=== PATIENT | male | born 1945 | race African-American/Black ===

== ENCOUNTER 2016-11-08 13:01 | Day surgery (SDC) | payer OTHER, MEDICAID ==
[2016-11-08] MEDS ORDERED: TETRACAINE 0.5% OPHTH 1 DOSE AFFEYE ONE ×2 (13:25→13:58)
[2016-11-08] MEDS ORDERED: ALPHAGAN-P OPHTH 1 DOSE AFFEYE ONE (13:26)
[2016-11-08 13:28] VITALS: BP 157/96
== END 2016-11-08 14:18 | disposition home or self-care (01) ==
LOC: SURG1 13:01
PROVIDERS: ATTEND Ophthalmology
PROC: 08QD3ZZ Repair Left Iris, Percutaneous Approach (ICD-10-PCS; principal; 2016-11-08 22:15)
DX: H40.10X1 Unspecified open-angle glaucoma, mild stage (principal)
CPT/HCPCS: 65855

== ENCOUNTER 2016-11-22 13:15 | Day surgery (SDC) | payer OTHER, MEDICAID ==
[~2016-11-22 13:15] MED LIST: TETRACAINE 0.5% OPHTH 1 DOSE AFFEYE ONE
[2016-11-22] MEDS ORDERED: ALPHAGAN-P OPHTH 1 DOSE AFFEYE ONE (13:16)
[2016-11-22] MEDS ORDERED: TETRACAINE 0.5% OPHTH 1 DOSE AFFEYE ONE (13:39)
[2016-11-22 15:57] VITALS: BP 149/89
== END 2016-11-22 15:55 | disposition home or self-care (01) ==
LOC: SURG1 13:15
PROVIDERS: ATTEND Ophthalmology
PROC: 08QC3ZZ Repair Right Iris, Percutaneous Approach (ICD-10-PCS; principal; 2016-11-22 06:00)
DX: H40.1111 Primary open-angle glaucoma, right eye, mild stage (principal)
CPT/HCPCS: 65855

== ENCOUNTER 2024-11-06 17:25 | Observation (INO) ==
[2024-11-06 18:03] LABS: BASOPHILS % (AUTO) 0.6 % (0.2-1.0); EOSINOPHILS # (AUTO) 0.1 x10^3/uL (0.0-0.2); EOSINOPHILS % (AUTO) 2.3 % (0.9-2.9); HEMATOCRIT 25.7 % (42.0-54.0); HEMOGLOBIN 8.4 g/dL (13.5-18.0); LYMPHOCYTES # (AUTO) 1.1 X10^3/uL (1.3-2.9); LYMPHOCYTES % (AUTO) 20.7 % (21.0-51.0); MEAN CORPUSCULAR HEMOGLOBIN 31.1 pg (27.0-34.0); MEAN CORPUSCULAR HGB CONC 32.6 g/dL (33.0-35.0); MEAN CORPUSCULAR VOLUME 95.2 fL (80.0-100.0); MEAN PLATELET VOLUME 7.6 fL (7.4-11.0); MONOCYTES # (AUTO) 0.5 x10^3/uL (0.3-0.8); MONOCYTES % (AUTO) 8.3 % (0.0-13.0); NEUTROPHILS # (AUTO) 3.7 x10^3/uL (2.2-4.8); NEUTROPHILS % (AUTO) 68.1 % (42.0-75.0); PLATELET COUNT 268 X10^3/uL (150.0-450.0); RED CELL DISTRIBUTION WIDTH 16.1 % (11.6-16.5); WHITE BLOOD COUNT 5.5 X10^3/uL (3.6-10.0)
--- NOTE | 2024-11-06 18:06 | EKG ---
Test Reason : Dyspnea Blood Pressure : */* mmHG Vent. Rate : 88 BPM Atrial Rate : 88 BPM P-R Int : 180 ms QRS Dur : 86 ms QT Int : 402 ms P-R-T Axes : 21 12 80 degrees QTc Int : 486 ms Sinus rhythm with frequent and consecutive premature ventricular complexes Nonspecific ST and T wave abnormality Abnormal ECG No previous ECGs available Confirmed by De Sepulveda MD ([id number]) on 11/07/2024 7:23:40 AM Referred By: Confirmed By: De Sepulveda MD
[2024-11-06 18:13] LABS: INR 1.14 (0.8-1.3)
[2024-11-06 18:17] LABS: ALANINE AMINOTRANSFERASE 38 Units/L (12-78); ALBUMIN 2.5 g/dL (3.4-5.0); ALKALINE PHOSPHATASE 76 Units/L (46-116); ASPARTATE AMINO TRANSFERASE 29 Units/L (15-37); BLOOD UREA NITROGEN 42 mg/dL (7-18); CALCIUM 9.2 mg/dL (8.5-10.1); CARBON DIOXIDE 36.3 mmol/L (21-32); CHLORIDE 109 mmol/L (98-107); COR CA(FOR HYPOALB) 10.4 mg/dL (8.5-10.1); CREATINE KINASE 44 Units/L (39-308); CREATININE 1.31 mg/dL (0.70-1.30); GLUCOSE 95 mg/dL (65-99); MAGNESIUM 1.7 mg/dL (2.0-2.9); POTASSIUM 4.2 mmol/L (3.5-5.1); TOTAL PROTEIN 6.5 g/dL (6.4-8.2); eGFR NON BLACK RACES 56 (>60)
[2024-11-06 18:19] LABS: SODIUM 151 mmol/L (136-145)
--- NOTE | 2024-11-06 19:06 | RAD ---
EXAM:CHEST, 1 VIEWHISTORY:Shortness of Breath;COMPARISON:No relevant prior studies were available for comparison at the time of interpretation.TECHNIQUE:CHEST, 1 VIEWFINDINGS:Chest:Lines and tubes: Cardiac leads overlie the chest.Mediastinum: Cardiomegaly.Pulmonary vessels: Pulmonary vasculature is prominent.Lung perez: No suspicious airspace opacity.Pleura: No effusion. No pneumothorax.Bones and soft tissues: No acute osseous or soft tissue abnormality.IMPRESSION:1. Findings suggest heart failureTHIS IS AN ELECTRONICALLY VERIFIED FINAL REPORT11/06/2024 6:54 PM - Electronically signed by Red Booker MD
[2024-11-06] MEDS: LASIX IVP ONE ×2 (19:41→19:52)
[2024-11-06] MEDS: NS 500 ML IV 500 ML IV ONE (19:52)
[2024-11-06] MEDS ORDERED: NORCO 7.5/325 MG TAB PO PRN (21:50)
--- NOTE | 2024-11-06 21:53 | DR.SOBA ---
HPI Time Seen Time Seen by Provider: 11/06/24 17:50 Primary Care Physician Primary Care Physician: Dr. Love Complaints Chief Complaint Doctors Comments: 79 yo M, recently hospitalized for PNA & resp failure, discharged from [facility] this am to rehab at [facility], began to have increasing shortness of breath this evening, sent to ER for dyspnea & hypoxia. Chief Complaint:: [facility] [place] staff reports that pt arrived to their facility this afternoon as a new admission. Upon arrival pt was found to be hypotensive, tachypneic, and hypoxic. [facility] reports that pt presented with O2 sat of 91% on 4L O2 via [place], Respiratory Rate of 36 and BP 80s/50s. COVID-19 Coronavirus risk:travel/contact w/high risk person: No Has patient experienced Coronavirus symptoms: No Source History Provided: Family Member and [facility] Mode of Arrival Mode of Arrival: EMS Timing Onset of Chief Complaint: 11/06/24 PMH PMH Past Medical History: Yes Past Medical History: Anemia, Arthritis, COPD, CVA, GERD, Hypertension and Renal Disease Past Medical History Comment: Glaucoma, afib, vitamin d deficiency, cardiomegaly Past Surgical History: Yes Past Surgical History Comment: hernia repair Family History History of Family Medical Conditions: No Social History Does patient currently use any type of tobacco product: No Have you used tobacco products in the last 12 months: No Type of Tobacco Use: None Does any household member use tobacco: No Alcohol Use: None Do you use any recreational Drugs:: No Lives With: Other Lives Where: [facility] Travel Risk Coronavirus risk:travel/contact w/high risk person: No Has patient experienced Coronavirus symptoms: No Infectious screening In the last 2 months have you had wt loss of >10#?: NO Have you had fever, night sweats or hemotysis?: No Have you traveled outside the country in the last 6 months?: No Isolation: Standard ROS Review of Systems Respiratoy: Short of Breath All Other Systems: Reviewed and Negative PE Vital Signs Vitals: Vital Signs Temperature 99.6 F Pulse Rate 73 Pulse Rate 73 Pulse Rate 81 Pulse Rate 74 Pulse Rate 83 Pulse Rate 74 Pulse Rate 81 Pulse Rate 83 Pulse Rate 76 Pulse Rate 85 Pulse Rate 81 Pulse Rate 73 Pulse Rate 87 Pulse Rate 90 Pulse Rate 82 Pulse Rate 76 Pulse Rate 75 Respiratory Rate 31 Respiratory Rate 31 Respiratory Rate 28 Respiratory Rate 30 Respiratory Rate 33 Respiratory Rate 31 Respiratory Rate 32 Respiratory Rate 29 Respiratory Rate 32 Respiratory Rate 32 Respiratory Rate 32 Respiratory Rate 33 Respiratory Rate 27 Respiratory Rate 27 Respiratory Rate 32 Respiratory Rate 34 Blood Pressure 90/54 Blood Pressure 90/54 Blood Pressure 94/52 Blood Pressure 91/51 Blood Pressure 108/56 Blood Pressure 92/55 Blood Pressure 88/52 Blood Pressure 94/52 Blood Pressure 89/52 Blood Pressure 84/49 Blood Pressure 95/53 Blood Pressure 92/52 Blood Pressure 112/56 Blood Pressure 117/58 Blood Pressure 101/52 Blood Pressure 87/53 Blood Pressure 87/53 O2 Sat by Pulse Oximetry 100 O2 Sat by Pulse Oximetry 100 O2 Sat by Pulse Oximetry 100 O2 Sat by Pulse Oximetry 100 O2 Sat by Pulse Oximetry 100 O2 Sat by Pulse Oximetry 100 O2 Sat by Pulse Oximetry 100 O2 Sat by Pulse Oximetry 100 O2 Sat by Pulse Oximetry 100 O2 Sat by Pulse Oximetry 100 O2 Sat by Pulse Oximetry 100 O2 Sat by Pulse Oximetry 100 O2 Sat by Pulse Oximetry 99 O2 Sat by Pulse Oximetry 95 O2 Sat by Pulse Oximetry 99 O2 Sat by Pulse Oximetry 100 General Limitations: No Limitations General Appearance: Alert and In No Apparent Distress Head Head Exam: Normal Inspection Eyes Eye exam: Normal Appearance ENT ENT Exam: Normal Exam Neck Neck Exam: Normal Inspection Chest Chest Inspection: Normal Inspection Respiratory Respiratory Exam: Respiratory Distress Respiratory Exam: Bilateral: Crackles Cardiovascular Cardiovascular Exam: Regular Rate and Normal Rhythm Abdominal Exam Abdominal Exam: Normal Inspection, Normal Bowel Sounds and Soft Extremities Extremities Exam: Normal Inspection Back Back Exam: Normal Inspection Neurologic Neurological Exam: Alert and Oriented X3 Psychiatric Psychiatric Exam: Normal Affect and Normal Mood Skin Skin Exam: Warm, Dry, Intact and Normal Color ROR Labs Reviewed Laboratory Results Reviewed?: Yes 11/06/24 17:52 11/06/24 17:52 Laboratory: WBC 5.5 X10^3/uL (3.6-10.0) 11/06/24 17:52 RBC 2.70 X10^6/uL (4.7-6.0) L 11/06/24 17:52 Hgb 8.4 g/dL (13.5-18.0) L 11/06/24 17:52 Hct 25.7 % (42.0-54.0) L 11/06/24 17:52 MCV 95.2 fL (80.0-100.0) 11/06/24 17:52 MCH 31.1 pg (27.0-34.0) 11/06/24 17:52 MCHC 32.6 g/dL (33.0-35.0) L 11/06/24 17:52 RDW 16.1 % (11.6-16.5) 11/06/24 17:52 Plt Count 268 X10^3/uL (150.0-450.0) 11/06/24 17:52 MPV 7.6 fL (7.4-11.0) 11/06/24 17:52 Neut % (Auto) 68.1 % (42.0-75.0) 11/06/24 17:52 Lymph % (Auto) 20.7 % (21.0-51.0) L 11/06/24 17:52 [place] % (Auto) 8.3 % (0.0-13.0) 11/06/24 17:52 Eos % (Auto) 2.3 % (0.9-2.9) 11/06/24 17:52 Baso % (Auto) 0.6 % (0.2-1.0) 11/06/24 17:52 Neut # (Auto) 3.7 x10^3/uL (2.2-4.8) 11/06/24 17:52 Lymph # (Auto) 1.1 X10^3/uL (1.3-2.9) L 11/06/24 17:52 [place] # (Auto) 0.5 x10^3/uL (0.3-0.8) 11/06/24 17:52 Eos # (Auto) 0.1 x10^3/uL (0.0-0.2) 11/06/24 17:52 Baso # (Auto) 0.0 X10^3/uL (0.0-0.1) 11/06/24 17:52 Absolute Nucleated RBC 0.1 /100WBC 11/06/24 17:52 PT 14.7 SECONDS (11.8-14.3) 11/06/24 17:52 INR Target Range - 11/06/24 17:52 INR 1.14 (0.8-1.3) 11/06/24 17:52 APTT 38.2 SECONDS (22.9-36.5) H 11/06/24 17:52 PTT Comment - 11/06/24 17:52 Sodium 151 mmol/L (136-145) H* 11/06/24 17:52 Corrected Sodium TNP 11/06/24 17:52 Potassium 4.2 mmol/L (3.5-5.1) 11/06/24 17:52 Chloride 109 mmol/L (98-107) H 11/06/24 17:52 Carbon Dioxide 36.3 mmol/L (21-32) H 11/06/24 17:52 BUN 42 mg/dL (7-18) H 11/06/24 17:52 Creatinine 1.31 mg/dL (0.70-1.30) H 11/06/24 17:52 Est GFR (MDRD) Af Amer > 60 (>60) 11/06/24 17:52 Est GFR (MDRD) Non-Af 56 (>60) L 11/06/24 17:52 Glucose 95 mg/dL (65-99) 11/06/24 17:52 Lactic Acid 1.4 mmol/L (0.4-2.0) 11/06/24 18:25 Calcium 9.2 mg/dL (8.5-10.1) 11/06/24 17:52 Corrected Calcium 10.4 mg/dL (8.5-10.1) H 11/06/24 17:52 Magnesium 1.7 mg/dL (2.0-2.9) L 11/06/24 17:52 Total Bilirubin 1.40 mg/dL (0.2-1.0) H 11/06/24 17:52 AST 29 Units/L (15-37) 11/06/24 17:52 ALT 38 Units/L (12-78) 11/06/24 17:52 Alkaline Phosphatase 76 Units/L (46-116) 11/06/24 17:52 Creatine Kinase 44 Units/L (39-308) 11/06/24 17:52 Troponin I High Sens 24.5 ng/L (4.0-60.0) 11/06/24 17:52 B-Natriuretic Peptide 481 pg/mL (0-79) H 11/06/24 17:52 Total Protein 6.5 g/dL (6.4-8.2) 11/06/24 17:52 Albumin 2.5 g/dL (3.4-5.0) L 11/06/24 17:52 Globulin 4.0 g/dL (2.5-4.5) 11/06/24 17:52 Albumin/Globulin Ratio 0.6 Ratio (1.1-2.1) L 11/06/24 17:52 Opioid Opioid Risk Tool Age (Evens box if 16-45): No History of Preadolescent Sexual Abuse: No Total: 0 Total Score Risk Category: Low Risk Copyright: Van JEREZ predicting aberrant behaviors Discharge Plan Diagnosis Discharge Problem: Pulmonary edema, Hypoxia, Hypotension Discharge Plan Patient Disposition: ADMITTED INPATIENT Condition: Stable Prescriptions: No Action furosemide [Lasix] 40 mg Tablet 40 mg PO DAILY ipratropium-albuterol [DuoNeb] 0.5 mg-3 mg(2.5 mg base)/3 mL Solution For Nebulization 3 ml INHALATION Q4H PRN amiodarone 200 mg Tablet 200 mg PO DAILY hydrocodone-acetaminophen 7.5-325 mg tablet 1 tab PO QDAY PRN esomeprazole magnesium 40 mg capsule,delayed release(DR/EC) 40 mg PO BID Ferrocite Plus 106 mg iron- 1 mg Tablet 1 tab PO BID celecoxib 100 mg capsule 100 mg PO BID cefdinir 300 mg capsule 300 mg PO BID Rx Instructions: x 14 days started on 10/31/24 dorzolamide 2 % drops 1 drp OPHTHALMIC (EYE) TID Patient Comments: [NO ORIGINAL SIG] metoprolol tartrate 25 mg Tablet 25 mg PO BID Lumigan 0.01 % drops 1 drp OPHTHALMIC (EYE) HS Patient Comments: [NO ORIGINAL SIG] Eliquis 2.5 mg Tablet 2.5 mg PO BID Health Concerns: Post Hospitalization: new medications and changes needed to prevent readmission or further decline. Pt educated and given instructions on all concerns. Plan of Treatment: Continue with present treatment and follow up plan. Pt is to keep follow up appointment as instructed and take medications as ordered. Orders to Discharge Patient Discharge Orders: Transfer (Routine); Ordered 11/06/24 Ordered By: Ludin Sneed Follow ups/Referrals Follow ups/Referrals: ADAN LOVE [Primary Care Provider] - 3 days Instructions Stand Alone Forms: Find Help Web Site, Post Hospital Follow Up Care ADDITIONAL NOTES Additional Notes Additional Notes: admit to Dr Zambrano
[2024-11-06] MEDS ORDERED: NS 1,000 ML IV 1,000 ML ONE (22:53)
[2024-11-06] MEDS ORDERED: MAGNESIUM SULFATE 1 GRAM/100 mL PREMIX 1 G/100 ML BAG IV ONE (23:00)
[2024-11-06] MEDS: NS 1,000 ML IV 1,000 ML IV SCH (23:09)
[2024-11-06] MEDS: MAGNESIUM SULFATE 1 GRAM/100 mL PREMIX 1 G/100 ML BAG IV SCH (23:10)
--- NOTE | 2024-11-06 23:15 | EKG ---
Test Reason : dyspnea Blood Pressure : */* mmHG Vent. Rate : 86 BPM Atrial Rate : 86 BPM P-R Int : 184 ms QRS Dur : 84 ms QT Int : 362 ms P-R-T Axes : 118 15 -64 degrees QTc Int : 433 ms Sinus rhythm with frequent and consecutive premature ventricular complexes Nonspecific ST and T wave abnormality Abnormal ECG When compared with ECG of 06-NOV-2024 17:55, (Unconfirmed) QT has shortened Confirmed by De Sepulveda MD ([id number]) on 11/07/2024 7:23:17 AM Referred By: Confirmed By: De Sepulveda MD
[2024-11-06 23:25] LABS: MAGNESIUM 1.8 mg/dL (2.0-2.9)
[2024-11-07 00:31] VITALS: BMI 23.3
[2024-11-07] MEDS: LOPRESSOR TAB 25 MG PO SCH (00:41)
[2024-11-07] MEDS: TRUSOPT PLUS (OPHTH) OP SCH (00:41)
[2024-11-07] MEDS: CELEBREX PO SCH (00:47)
[2024-11-07] MEDS: ELIQUIS PO SCH (00:47)
[2024-11-07 04:05] VITALS: TEMP 98
[2024-11-07 05:47] LABS: INR 1.17 (0.8-1.3)
[2024-11-07 05:52] LABS: ALANINE AMINOTRANSFERASE 31 Units/L (12-78); ALBUMIN 2.3 g/dL (3.4-5.0); ALKALINE PHOSPHATASE 68 Units/L (46-116); ASPARTATE AMINO TRANSFERASE 22 Units/L (15-37); BLOOD UREA NITROGEN 40 mg/dL (7-18); CALCIUM 9.4 mg/dL (8.5-10.1); CARBON DIOXIDE 36.1 mmol/L (21-32); CHLORIDE 108 mmol/L (98-107); CHOL/HDL RATIO 3.3 (0.0-5.0); CHOLESTEROL 141 mg/dL (0-200); COR CA(FOR HYPOALB) 10.8 mg/dL (8.5-10.1); CREATININE 1.23 mg/dL (0.70-1.30); GLUCOSE 93 mg/dL (65-99); HDL CHOLESTEROL 43 mg/dL (40-60); MAGNESIUM 2.5 mg/dL (2.0-2.9); POTASSIUM 3.7 mmol/L (3.5-5.1); TOTAL PROTEIN 6.3 g/dL (6.4-8.2); TRIGLYCERIDES 61 mg/dL (0-150); eGFR NON BLACK RACES > 60 (>60)
[2024-11-07 05:54] LABS: BASOPHILS % (AUTO) 0.6 % (0.2-1.0); EOSINOPHILS # (AUTO) 0.1 x10^3/uL (0.0-0.2); EOSINOPHILS % (AUTO) 3.4 % (0.9-2.9); HEMATOCRIT 30.2 % (42.0-54.0); HEMOGLOBIN 9.4 g/dL (13.5-18.0); LYMPHOCYTES # (AUTO) 1.1 X10^3/uL (1.3-2.9); LYMPHOCYTES % (AUTO) 25.8 % (21.0-51.0); MEAN CORPUSCULAR HEMOGLOBIN 29.8 pg (27.0-34.0); MEAN CORPUSCULAR HGB CONC 31.2 g/dL (33.0-35.0); MEAN CORPUSCULAR VOLUME 95.7 fL (80.0-100.0); MEAN PLATELET VOLUME 8.3 fL (7.4-11.0); MONOCYTES # (AUTO) 0.4 x10^3/uL (0.3-0.8); MONOCYTES % (AUTO) 10.7 % (0.0-13.0); NEUTROPHILS # (AUTO) 2.4 x10^3/uL (2.2-4.8); NEUTROPHILS % (AUTO) 59.5 % (42.0-75.0); PLATELET COUNT 223 X10^3/uL (150.0-450.0); RED BLOOD COUNT 3.15 X10^6/uL (4.7-6.0); RED CELL DISTRIBUTION WIDTH 16.4 % (11.6-16.5); SODIUM 151 mmol/L (136-145); WHITE BLOOD COUNT 4.1 X10^3/uL (3.6-10.0)
--- NOTE | 2024-11-07 06:10 | EKG ---
Test Reason : dyspnea Blood Pressure : */* mmHG Vent. Rate : 65 BPM Atrial Rate : 65 BPM P-R Int : 208 ms QRS Dur : 92 ms QT Int : 424 ms P-R-T Axes : 35 -19 34 degrees QTc Int : 440 ms Sinus rhythm with frequent premature ventricular complexes Nonspecific T wave abnormality Abnormal ECG When compared with ECG of 06-NOV-2024 22:52, (Unconfirmed) Non-specific change in ST segment in Anterior leads Confirmed by De Sepulveda MD ([id number]) on 11/07/2024 7:23:10 AM Referred By: Confirmed By: De Sepulveda MD
--- NOTE | 2024-11-07 07:38 | RAD ---
EXAMINATION: CHEST, 1 VIEW HISTORY: DYSPNEA; COPD, CVA, GERD, HTN, RENAL DISEASE, AFIB, CARDIOMEGALY SX: HERNIA REPAIR . COMPARISON STUDY: Chest x-ray 11/06/2024 TECHNIQUE: Single frontal view of the chest portable technique FINDINGS: Patchy interstitial alveolar infiltrates scattered throughout both lungs. Dense opacity obscuring th e left mid and lower lung field. Cardiac silhouette enlargement with pulmonary vascular congestion. Bones appear intact. IMPRESSION: Patchy infiltrates scattered in both lungs. Dense opacity obscures the left mid and lower lung field and hemidiaphragm of the chest. Consider follow-up CT of the thorax. Cardiac silhouette enlargement with mild pulmonary vascular congestion. THIS IS AN ELECTRONICALLY VERIFIED FINAL REPORT 11/07/2024 7:35 AM - Electronically signed by Jennifer Escalante MD
[2024-11-07] MEDS: DUONEB 0.5 MG/3 MG (3 mL) NEB PRN (08:00)
[2024-11-07] MEDS ORDERED: LASIX IVP SCH (09:00)
[2024-11-07] MEDS ORDERED: NexIUM PO SCH (09:00)
[2024-11-07] MEDS: PROTONIX INJ 40 MG VIAL IVP SCH (09:10)
[2024-11-07] MEDS: NS 1/2 1,000 ML IV 1,000 ML IV SCH (09:10)
[2024-11-07] MEDS: SOLU-Medrol 125 MG VIAL IVP SCH (09:10)
--- NOTE | 2024-11-07 09:21 | CT ---
EXAMINATION:CTA, CHESTHISTORY:HYPOXIA;COMPARISON:None. r.br.br.br intravenous contrast. Images reviewed in the axial imaging plane with post processing thick slab MIP/3D volume images at a workstation.The above CT scan was done with automated exposure control and the mA and kV was adjusted to obtain quality images according to patient size.FINDINGS:The lungs are expanded. Moderate centrilobular emphysema. Large region of dense pulmonary consolidation throughout most of the left lower lobe of the chest. Small area of pulmonary consolidation inferior right lower lobe. Patchy infiltrate posteroinferior right upper lobe and posteroinferior left upper lobe. There is attenuation of the bronchus intermedius and right lower lobe bronchus on the right. Occlusion of the left lower lobe bronchus.[id number] multichamber cardiac enlargement. Coronary artery calcifications. Enlarged main pulmonary outflow trunk measuring 3.4 cm diameter consistent with pulmonary arterial hypertension. No evidence of thrombus within the main central pulmonary arteries. However, there is heterogeneous enhancement of tertiary branch vessels of the pulmonary arteries to the left upper lung, left lower lung therefore potential acute pulmonary emboli within these regions can not be ruled out on this exam. There is evidence of right-sided cardiac strain with reflux of contrast into the IVC and hepatic veins. Mild fusiform shaped ectasia ascending thoracic aorta 4.1 cm diameter. No evidence of thoracic aortic dissection.[id number]-rx-oyhtlyel spondylosis.IMPRESSION:Enlarged main pulmonary outflow trunk consistent with pulmonary arterial hypertension. Evidence of right-sided cardiac dysfunction with contrast refluxing into the IVC and hepatic veins.Subtle heterogeneous enhancement of tertiary branch vessels of the pulmonary arteries of the left upper lung and left lower lung potentially representing acute pulmonary emboli.Cardiomegaly, coronary artery calcifications.Large regions of dense pulmonary consolidation throughout most of the left lower lobe of the chest with smaller area of pulmonary consolidation inferior right lower lobe. Patchy infiltrates in both lungs. Attenuation of the bronchus intermedius and right lower lobe bronchus on the right, occlusion of the left lower lobe bronchus.THIS IS AN ELECTRONICALLY VERIFIED FINAL REPORT11/07/2024 9:17 AM - Electronically signed by Jennifer Escalante MD
[2024-11-07] MEDS ORDERED: HEPARIN SODIUM INJ 5000 UNITS IVP ONE (09:39)
[2024-11-07] MEDS ORDERED: PHARMACY CONSULT LTC MEDICATIONS XX SCH (10:00)
[2024-11-07] MEDS: OMNIPAQUE 350 mg/mL 100 mL BTL 100 ML ONE (10:02)
[2024-11-07] MEDS: HEPARIN SODIUM IN D5W 25,000 UNITS/500 ML BAG IV PRN (10:22)
[2024-11-07 10:36] LABS: ABG BASE EXCESS 15.4 mmol/L (-2.0-2.0)
[2024-11-07 10:39] LABS: ABG HCO3 41.2 mmol/L (22-26)
--- NOTE | 2024-11-07 11:10 | EKG ---
Test Reason : dyspnea Blood Pressure : */* mmHG Vent. Rate : 75 BPM Atrial Rate : 75 BPM P-R Int : 210 ms QRS Dur : 94 ms QT Int : 466 ms P-R-T Axes : 88 -8 -7 degrees QTc Int : 520 ms Sinus rhythm with 1st degree AV block with frequent and consecutive premature ventricular complexes Nonspecific ST and T wave abnormality Abnormal ECG When compared with ECG of 07-NOV-2024 05:39, QT has lengthened Confirmed by De Sepulveda MD ([id number]) on 11/07/2024 5:45:49 PM Referred By: Confirmed By: De Sepulveda MD
[2024-11-07 12:17] VITALS: BP 99/61; O2SAT 100
[2024-11-07] MEDS: NS 1/2 1,000 ML IV 1,000 ML IV ONE (12:28)
[2024-11-07] MEDS: CORDARONE TAB 200 MG PO SCH (12:28)
[2024-11-07 14:08] VITALS: PULSE 68; RESP 26
[2024-11-07] MEDS ORDERED: LUMIGAN OPHTH AFFEYE SCH (21:00)
== END 2024-11-07 13:10 | disposition short-term general hospital (02) ==
LOC: ER 17:25 → ICU 17:25
PROVIDERS: ADMIT Family Medicine; ATTEND Internal Medicine
DX: Z59.86 Financial insecurity; K21.9 Gastro-esophageal reflux disease without esophagitis; Z79.01 Long term (current) use of anticoagulants; J18.8 Other pneumonia, unspecified organism; E80.6 Other disorders of bilirubin metabolism; I10 Essential (primary) hypertension; I48.20 Chronic atrial fibrillation, unspecified; I69.351 Hemiplegia and hemiparesis following cerebral infarction affecting right dominant side; E87.0 Hyperosmolality and hypernatremia; R06.03 Acute respiratory distress; J44.9 Chronic obstructive pulmonary disease, unspecified; I95.89 Other hypotension; R79.1 Abnormal coagulation profile; E83.42 Hypomagnesemia; R06.02 Shortness of breath; R09.02 Hypoxemia; I69.320 Aphasia following cerebral infarction; L89.159 Pressure ulcer of sacral region, unspecified stage; Z66 Do not resuscitate; I26.99 Other pulmonary embolism without acute cor pulmonale